=== PATIENT | female | born 1975 | race Caucasian/White ===

== ENCOUNTER 2016-12-11 06:07 | Emergency (ER) | payer OTHER ==
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
== END 2016-12-11 06:37 | disposition disaster alternative care site (69) ==
LOC: GACC 06:07
PROC: 2W2CX4Z Dressing of Right Lower Arm using Bandage (ICD-10-PCS; principal; 2016-12-11)
DX: T22.011A Burn of unspecified degree of right forearm, initial encounter (principal); X12.XXXA Contact with other hot fluids, initial encounter; Y92.69 Other specified industrial and construction area as the place of occurrence of the external cause; Y99.0 Civilian activity done for income or pay

== ENCOUNTER 2017-05-31 07:49 | Emergency (ER) | payer OTHER ==
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
== END 2017-05-31 08:16 | disposition disaster alternative care site (69) ==
LOC: GMED 07:49
DX: S00.86XA Insect bite (nonvenomous) of other part of head, initial encounter (principal); S50.862A Insect bite (nonvenomous) of left forearm, initial encounter; S50.861A Insect bite (nonvenomous) of right forearm, initial encounter; S20.469A Insect bite (nonvenomous) of unspecified back wall of thorax, initial encounter; W57.XXXA Bitten or stung by nonvenomous insect and other nonvenomous arthropods, initial encounter
CPT/HCPCS: J7512